=== PATIENT | female | born 1950 | race Two or more races ===

== ENCOUNTER 2016-04-09 20:39 | Emergency (ER) | payer MEDICARE ==
[~2016-04-09] VITALS: Ht 165.1 cm; Wt 69.9 kg
[2016-04-09 21:13] VITALS: BP 175/71
[2016-04-09] MEDS ORDERED: BENAZEPRIL HCL20 MG ORAL (21:15)
[2016-04-09] MEDS ORDERED: METOPROLOL SUCC25 MG ORAL (21:15)
[2016-04-09] MEDS ORDERED: ASPIR 8181 MG ORAL (21:15)
[2016-04-09] MEDS ORDERED: Ketorolac 30mg Inj IV ONE (21:45)
[2016-04-09 22:00] LABS: EOSINOPHILS % (AUTO) 1.5 % (0.0-3.0); LYMPHOCYTES % (AUTO) 21.6 % (20.0-45.0); MEAN CORPUSCULAR HEMOGLOBIN 32.7 PG (27.0-31.0); MEAN CORPUSCULAR HGB CONC 34.2 G/DL (32.0-36.0); MEAN CORPUSCULAR VOLUME 96 FL (80-99); MEAN PLATELET VOLUME 10.3 FL (6.5-10.1); MONOCYTES % (AUTO) 9.2 % (1.0-10.0); NEUTROPHILS % (AUTO) 66.7 % (45.0-75.0); PLATELET COUNT 157 K/UL (150-450); RED BLOOD COUNT 4.19 M/UL (4.20-5.40); RED CELL DISTRIBUTION WIDTH 11.5 % (11.6-14.8); WHITE BLOOD COUNT 10.6 K/UL (4.8-10.8)
--- NOTE | 2016-04-09 22:10 | Emergency Room Report ---
History of Present Illness General Chief Complaint: General Complaint Source: Patient Present Illness [facility] This is a 66-year-old female with history hypertension. She presents with chief complaint of back pain and epigastric pain. Onset few hours ago. Denies any fever or chills. Pain is now diffuse in nature achy nature. She does have a history of osteoarthritis. When she checked her blood pressure it was 180/ 90. She was concerned. Denies any chest pain. Denies any diaphoresis. Denies any shortness of breath or exertional component. No urinary complaint. Allergies: Coded Allergies: ACETAMINOPHEN (Verified Allergy, Unknown, 04/09/16) HYDROCODONE (Verified Allergy, Unknown, 04/09/16) Patient History Past Medical History: see triage record, old chart reviewed, HTN Past Surgical History: other Pertinent Family History: none Social History: Denies: smoking Now: No Immunizations: other Reviewed Nursing Documentation: PMH: Agreed, PSxH: Agreed Nursing Documentation-PMH Past Medical History: No History, Except For Hx Cardiac Problems: Yes - Stent , stenosis Hx Hypertension: Yes Review of Systems Eye: Denies: blurred vision, eye pain ENT: Denies: ear pain, nose congestion, throat swelling Respiratory: Denies: cough, shortness of breath Cardiovascular: Denies: chest pain, palpitations Gastrointestinal: Reports: abdominal pain, Denies: diarrhea, nausea, vomiting Musculoskeletal: Reports: back pain, Denies: joint pain Skin: Denies: rash Neurological: Denies: headache, numbness Endocrine: Denies: increased thirst, increased urine Hematologic/Lymphatic: Denies: easy bruising All Other Systems: negative except mentioned in HPI Physical Exam Vital Signs Date Time Temp Pulse Resp B/P Pulse Ox O2 Delivery O2 Flow Rate FiO2 04/09/16 21:09 98.2 66 16 175/71 98 Room Air vitals with hypertension Sp02 EP Interpretation: reviewed, normal General Appearance: well appearing, no apparent distress, alert Head: normocephalic, atraumatic Eyes: bilateral eye EOMI, bilateral eye PERRL ENT: hearing grossly normal, normal pharynx Neck: full range of motion, supple, no meningismus Respiratory: chest non-tender, lungs clear, normal breath sounds Cardiovascular #1: regular rate, rhythm, no murmur Gastrointestinal: normal bowel sounds, non tender, no mass, no organomegaly, no bruit, non-distended Musculoskeletal: back normal, gait/station normal, normal range of motion Neurologic: alert, oriented x3 Psychiatric: anxious Skin: warm/dry Medical Decision Making Diagnostic Impression: Primary Impression: Back pain Qualified Codes: M54.6 - Pain in thoracic spine Additional Impression: Hypertension Qualified Codes: I10 - Essential (primary) hypertension ER Course Patient presents with back pain. Most likely osteoarthritis type pain. No evidence of aortic dissection. No evidence of ACS. No evidence of PE. No infectious cause. Patient felt better now. Blood pressures improved. We'll discharge home. Lab Results Impression labs unremarkable EKG Diagnostic Results Rate: normal Rhythm: NSR ST Segments: no acute changes Rhythm Strip Diag. Results EP Interpretation: yes Rate: 60 Rhythm: NSR, no PVC's, no ectopy Last Vital Signs Date Time Temp Pulse Resp B/P Pulse Ox O2 Delivery O2 Flow Rate FiO2 04/09/16 21:09 98.2 66 16 175/71 98 Room Air Status: improved Disposition: HOME, SELF-CARE Condition: Stable Scripts Meloxicam* (MOBIC*) 7.5 Mg Tablet 7.5 MG ORAL DAILY, #30 TAB 0 Refills Prov: SOPHY PFEIFFER M.D. 04/09/16 Referrals: NON PHYSICIAN (PCP) Additional Instructions: Followup with your DrKaro in 7 days. Return if symptom worsen. SOPHY PFEIFFER M.D. Apr 09, 2016 22:10
[2016-04-09 22:16] LABS: TROPONIN I < 0.30 ng/mL (<=0.30)
[2016-04-09 22:17] LABS: ALANINE AMINOTRANSFERASE 16 U/L (3-33); ALBUMIN/GLOBULIN RATIO 1.1 (1.0-2.7); ANION GAP 17 (5-15); ASPARTATE AMINO TRANSFERASE 19 U/L (5-40); CARBON DIOXIDE 24 mEQ/L (20-30); CHLORIDE 102 mEQ/L (98-107); CREATININE 0.6 mg/dL (0.5-0.9); GLOMERULAR FILTRATION RATE > 60 mL/min (>60); HEMOLYSIS 25; POTASSIUM 4.1 mEQ/L (3.4-4.9); SODIUM 143 mEQ/L (135-145); TOTAL PROTEIN 7.4 g/dL (6.6-8.7)
[2016-04-09 22:27] LABS: CKMB 1.9 ng/mL (< 3.8)
[2016-04-09 22:39] LABS: APPEARANCE,URINE CLEAR; KETONES,URINE NEGATIVE (NEGATIVE); LEUKOCYTE ESTERASE ,URINE 1+ (NEGATIVE); NITRITE,URINE NEGATIVE (NEGATIVE); PH,URINE 5 (4.5-8.0); PROTEIN,URINE NEGATIVE (NEGATIVE); UROBILINOGEN,URINE NORMAL MG/DL (0.0-1.0)
[2016-04-09 22:48] LABS: RBC,URINE 0-2 /HPF (0 - 2); WBC,URINE 0-2 /HPF (0 - 2)
[2016-04-09 22:49] LABS: BACTERIA,URINE FEW /HPF; SQUAMOUS EPITHELIAL CELL,UR FEW /LPF (NONE/OCC)
[2016-04-09] MEDS ORDERED: MOBIC7.5 MG ORAL (22:52)
[2016-04-09 23:17] VITALS: BP 164/87
--- NOTE | 2016-04-10 10:53 | Diagnostic Imaging Report ---
Indication: Chest Pain Comparison: None A single view chest radiograph was obtained. Findings: No definite infiltrate or pulmonary vascular congestion identified. The heart is enlarged. The aorta is mildly enlarged consistent with atherosclerotic vascular disease. The bones are osteopenic. Impression: No acute disease
--- NOTE | 2016-04-12 10:07 | Cardiology Report ---
APPROVED REPORT EKG Measurement Heart [id number] Sinus bradycardia Otherwise normal ECG
== END 2016-04-09 23:17 | disposition home or self-care (01) ==
LOC: EMR 21:47
DX: M54.6 Pain in thoracic spine (principal); I10 Essential (primary) hypertension; Z95.5 Presence of coronary angioplasty implant and graft; Z88.6 Allergy status to analgesic agent
CPT/HCPCS: 36415; 71010; 80053; 81003; 82550; 82553; 83880; 84484; 85025; 93005; 96374; 99284; J1885

== ENCOUNTER 2017-06-21 12:09 | Emergency (ER) | payer MEDICARE, MEDICAID ==
[~2017-06-21] VITALS: Ht 165.1 cm; Wt 68.0 kg
[~2017-06-21 12:09] MED LIST: ASPIR 8181 MG ORAL; BENAZEPRIL HCL20 MG ORAL; METOPROLOL SUCC25 MG ORAL; MOBIC7.5 MG ORAL
[2017-06-21] MEDS ORDERED: AMLODIPINE BESY10 MG ORAL (12:19)
[2017-06-21] MEDS ORDERED: CARVEDILOL12.5 MG ORAL (12:19)
[2017-06-21] MEDS ORDERED: BRILINTA90 MG PO (12:19)
[2017-06-21 12:43] VITALS: BP 146/54
[2017-06-21 12:52] LABS: EOSINOPHILS % (AUTO) 1.4 % (0.0-3.0); HEMATOCRIT 40.6 % (37.0-47.0); MEAN CORPUSCULAR VOLUME 95 FL (80-99); MONOCYTES % (AUTO) 8.2 % (1.0-10.0); NEUTROPHILS % (AUTO) 62.4 % (45.0-75.0); PLATELET COUNT 168 K/UL (150-450); RED BLOOD COUNT 4.27 M/UL (4.20-5.40); RED CELL DISTRIBUTION WIDTH 11.7 % (11.6-14.8); WHITE BLOOD COUNT 6.7 K/UL (4.8-10.8)
--- NOTE | 2017-06-21 12:55 | Emergency Room Report ---
History of Present Illness General Chief Complaint: Hypertension Source: Patient Present Illness HPI 67-year-old female, history of hypertension and arthritis, presenting with high blood pressure. Patient states that she is on carvedilol, benazepril, amlodipine, and she has been compliant with her medications. States that since February she has been struggling with high blood pressure. Also states that she may be stressed out. States that she has seen her doctor multiple times, however the last time she went to the clinic an [employer] told her to come to the emergency room due to her high blood pressure She states intermittent blurry vision and generalized weakness for the last 5 months. Currently denying any chest pain shortness of breath dizziness nausea or vomiting Allergies: Coded Allergies: ACETAMINOPHEN (Verified Allergy, Unknown, 04/09/16) HYDROCODONE (Verified Allergy, Unknown, 04/09/16) Patient History Past Medical History: see triage record Past Surgical History: none Pertinent Family History: none Last Menstrual Period: Post Reviewed Nursing Documentation: PMH: Agreed; PSxH: Agreed Nursing Documentation-PMH Hx Cardiac Problems: Yes - Stent , stenosis Hx Hypertension: Yes Hx Diabetes: Yes Review of Systems All Other Systems: negative except mentioned in HPI Physical Exam Vital Signs Date Time Temp Pulse Resp B/P (MAP) Pulse Ox O2 Delivery O2 Flow Rate FiO2 06/21/17 12:13 98.2 69 15 142/66 96 Room Air 98.2 Sp02 EP Interpretation: reviewed, normal General Appearance: alert, GCS 15, non-toxic, mild distress Head: normocephalic, atraumatic Eyes: bilateral eye normal inspection, bilateral eye PERRL, bilateral eye EOMI ENT: normal ENT inspection, normal pharynx, normal voice, moist mucus membranes Neck: normal inspection, full range of motion, supple Respiratory: normal inspection, lungs clear, normal breath sounds, no respiratory distress, no retraction, no wheezing, speaking full sentences, chest symmetrical Cardiovascular #1: normal inspection, regular rate, rhythm, no edema, normal capillary refill Cardiovascular #2: 2+ radial (R), 2+ radial (L) Gastrointestinal: normal inspection, non tender, soft, non-distended, no guarding Musculoskeletal: normal inspection, back normal, normal range of motion, non- tender Neurologic: normal inspection, alert, oriented x3, responsive, motor strength/ tone normal, sensory intact, normal gait, speech normal Psychiatric: normal inspection, judgement/insight normal, memory normal Skin: normal inspection, normal color, no rash, warm/dry, well hydrated, normal turgor Medical Decision Making Diagnostic Impression: Primary Impression: Hypertension ER Course 67-year-old female presenting with hypertension, intermittent dizziness and weakness since February for the last 5 months DDX: Hypertension rule out any end organ damage Plan: Obtain labs, ua, EKG, CXR ER course: Patient has been monitored during ED stay, HD stable BP has remained stable, systolic 140s, she is not in acute distress Disposition: Patient is to be DC to home with PCP follow-up Please note that this Emergency Department Report was dictated using [employer] setter technology software, occasionally this can lead to erroneous entry secondary to interpretation by the dictation equipment. EKG Diagnostic Results EP Interpretation: Yes Rate: normal Rhythm: NSR ST Segments: No acute changes ASA given to patient: No Rhythm Strip EP Interpretation: Yes Rate: 60 Rhythm: NSR, no PVCs, no ectopy Chest X-ray CXR: Ordered: Yes 1 view Indication: Pain EP interpretation: Yes Interpretation: No consolidation, no effusion, no PTX, no acute cardiopulmonary disease Impression: No acute disease Electronically signed by Joshua Manzanares MD Laboratory Tests Test 06/21/17 12:25 06/21/17 12:40 Urine Color Yellow Urine Appearance Clear Urine pH 5 (4.5-8.0) Urine Specific [place] 1.020 (1.005-1.035) Urine Protein 1+ (NEGATIVE) H Urine Glucose (UA) Negative (NEGATIVE) Urine Ketones Negative (NEGATIVE) Urine Occult Blood 3+ (NEGATIVE) H Urine Nitrite Negative (NEGATIVE) Urine Bilirubin Negative (NEGATIVE) Urine Urobilinogen Normal MG/DL (0.0-1.0) Urine Leukocyte Esterase 1+ (NEGATIVE) H Urine RBC 2-4 /HPF (0 - 2) H Urine WBC 0-2 /HPF (0 - 2) Urine Squamous Epithelial Cells Few /LPF (NONE/OCC) Urine Bacteria Occasional /HPF (NONE) White Blood Count 6.7 K/UL (4.8-10.8) Red Blood Count 4.27 M/UL (4.20-5.40) Hemoglobin 14.0 G/DL (12.0-16.0) Hematocrit 40.6 % (37.0-47.0) Mean Corpuscular Volume 95 FL (80-99) Mean Corpuscular Hemoglobin 32.8 PG (27.0-31.0) H Mean Corpuscular Hemoglobin Concent 34.5 G/DL (32.0-36.0) Red Cell Distribution Width 11.7 % (11.6-14.8) Platelet Count 168 K/UL (150-450) Mean Platelet Volume 9.8 FL (6.5-10.1) Neutrophils (%) (Auto) 62.4 % (45.0-75.0) Lymphocytes (%) (Auto) 27.0 % (20.0-45.0) Monocytes (%) (Auto) 8.2 % (1.0-10.0) Eosinophils (%) (Auto) 1.4 % (0.0-3.0) Basophils (%) (Auto) 1.0 % (0.0-2.0) Sodium Level 142 MMOL/L (136-145) Potassium Level 4.1 MMOL/L (3.5-5.1) Chloride Level 109 MMOL/L (98-107) H Carbon Dioxide Level 24 MMOL/L (21-32) Anion Gap 9 mmol/L (5-15) Blood Urea Nitrogen 18 mg/dL (7-18) Creatinine 0.6 MG/DL (0.55-1.30) Estimate Glomerular Filtration Rate > 60 mL/min (>60) Glucose Level 164 MG/DL (74-106) H Calcium Level 8.9 MG/DL (8.5-10.1) Total Bilirubin 0.9 MG/DL (0.2-1.0) Aspartate Amino Transferase (AST) 19 U/L (15-37) Alanine Aminotransferase (ALT) 28 U/L (12-78) Alkaline Phosphatase 79 U/L (46-116) Troponin I 0.000 ng/mL (0.000-0.056) Total Protein 8.1 G/DL (6.4-8.2) Albumin 3.6 G/DL (3.4-5.0) Globulin 4.5 g/dL Albumin/Globulin Ratio 0.8 (1.0-2.7) L Last Vital Signs Date Time Temp Pulse Resp B/P (MAP) Pulse Ox O2 Delivery O2 Flow Rate FiO2 06/21/17 12:43 58 14 146/54 100 Room Air 06/21/17 12:13 98.2 98.2 Disposition: HOME, SELF-CARE Condition: Improved Joshua Manzanares M.D. June 21, 2017 12:55
[2017-06-21 12:59] LABS: APPEARANCE,URINE CLEAR; BILIRUBIN, URINE NEGATIVE (NEGATIVE); GLUCOSE, URINE (UA) NEGATIVE (NEGATIVE); KETONES,URINE NEGATIVE (NEGATIVE); LEUKOCYTE ESTERASE ,URINE 1+ (NEGATIVE); NITRITE,URINE NEGATIVE (NEGATIVE); PH,URINE 5 (4.5-8.0); PROTEIN,URINE 1+ (NEGATIVE); UROBILINOGEN,URINE NORMAL MG/DL (0.0-1.0)
[2017-06-21 13:06] LABS: ANION GAP 9 mmol/L (5-15); BLOOD UREA NITROGEN 18 mg/dL (7-18); CALCIUM 8.9 MG/DL (8.5-10.1); CARBON DIOXIDE 24 MMOL/L (21-32); CHLORIDE 109 MMOL/L (98-107); CREATININE 0.6 MG/DL (0.55-1.30); POTASSIUM 4.1 MMOL/L (3.5-5.1); SODIUM 142 MMOL/L (136-145)
[2017-06-21 13:11] LABS: ALANINE AMINOTRANSFERASE 28 U/L (12-78); ALBUMIN 3.6 G/DL (3.4-5.0); ALBUMIN/GLOBULIN RATIO 0.8 (1.0-2.7); ALKALINE PHOSPHATASE 79 U/L (46-116); ASPARTATE AMINO TRANSFERASE 19 U/L (15-37); BILIRUBIN,TOTAL 0.9 MG/DL (0.2-1.0)
[2017-06-21 13:15] LABS: COLOR,URINE YELLOW
--- NOTE | 2017-06-21 13:34 | Diagnostic Imaging Report ---
Indication: Dyspnea Comparison: 04/09/2016 A single view chest radiograph was obtained. Findings: Cardiomediastinal appearance is within normal limits for age. Aorta is calcified. Pulmonary vascularity is appropriate. The diaphragmatic contour is smooth and costophrenic angles are sharp. No pleural effusions are identified. The bones are osteopenic. Impression: No acute findings
[2017-06-21 13:46] VITALS: BP 138/41
--- NOTE | 2017-06-22 15:50 | Cardiology Report ---
APPROVED REPORT EKG Measurement Heart [id number] Sinus bradycardia Otherwise normal ECG
== END 2017-06-21 13:54 | disposition home or self-care (01) ==
LOC: EMR 12:50
DX: I10 Essential (primary) hypertension (principal); E11.9 Type 2 diabetes mellitus without complications; Z88.6 Allergy status to analgesic agent
CPT/HCPCS: 36415; 71045; 80053; 81003; 84484; 85025; 93005; 99283

== ENCOUNTER 2018-01-10 18:13 | Inpatient (IN) | payer MEDICARE, MEDICAID ==
[~2018-01-10] VITALS: Ht 165.1 cm; Wt 67.8 kg
[~2018-01-10 18:13] MED LIST changes: +AMLODIPINE BESY10 MG ORAL; +BRILINTA90 MG PO; +CARVEDILOL12.5 MG ORAL
[2018-01-10 18:38] VITALS: BP 161/81
[2018-01-10] MEDS ORDERED: Lidocaine 2% Visc 15ml soln ORAL ONE (18:45)
[2018-01-10] MEDS ORDERED: Dicyclomine HCl 10mg/5ml oral soln ORAL ONE (18:45)
[2018-01-10] MEDS ORDERED: Mylanta II UD 30ml ORAL ONE (18:45)
[2018-01-10 18:58] LABS: APPEARANCE,URINE CLEAR; BILIRUBIN, URINE NEGATIVE (NEGATIVE); COLOR,URINE PALE YELLOW; GLUCOSE, URINE (UA) NEGATIVE (NEGATIVE); KETONES,URINE NEGATIVE (NEGATIVE); LEUKOCYTE ESTERASE ,URINE NEGATIVE (NEGATIVE); NITRITE,URINE NEGATIVE (NEGATIVE); PH,URINE 5 (4.5-8.0); PROTEIN,URINE 2+ (NEGATIVE); UROBILINOGEN,URINE NORMAL MG/DL (0.0-1.0)
[2018-01-10 19:02] LABS: EOSINOPHILS % (AUTO) 0.9 % (0.0-3.0); HEMOGLOBIN 13.7 G/DL (12.0-16.0); LYMPHOCYTES % (AUTO) 7.1 % (20.0-45.0); MEAN CORPUSCULAR VOLUME 94 FL (80-99); MONOCYTES % (AUTO) 4.5 % (1.0-10.0); NEUTROPHILS % (AUTO) 86.5 % (45.0-75.0); PLATELET COUNT 185 K/UL (150-450); RED BLOOD COUNT 4.16 M/UL (4.20-5.40); WHITE BLOOD COUNT 12.3 K/UL (4.8-10.8)
[2018-01-10 19:09] LABS: ANION GAP 10 mmol/L (5-15); BLOOD UREA NITROGEN 25 mg/dL (7-18); CARBON DIOXIDE 23 MMOL/L (21-32); CHLORIDE 107 MMOL/L (98-107); CREATININE 0.6 MG/DL (0.55-1.30); POTASSIUM 4.4 MMOL/L (3.5-5.1); SODIUM 140 MMOL/L (136-145)
[2018-01-10 19:13] LABS: ALANINE AMINOTRANSFERASE 20 U/L (12-78); ALBUMIN 3.6 G/DL (3.4-5.0); ALBUMIN/GLOBULIN RATIO 0.7 (1.0-2.7); ALKALINE PHOSPHATASE 81 U/L (46-116); ASPARTATE AMINO TRANSFERASE 19 U/L (15-37); BILIRUBIN,TOTAL 0.6 MG/DL (0.2-1.0)
[2018-01-10] MEDS ORDERED: Isovue-300 100ml vial INJ PRN (19:45)
[2018-01-10 21:00] VITALS: BP 148/79
[2018-01-10 21:30] VITALS: BP 146/65
[2018-01-10] MEDS ORDERED: Milk of Magnesia 30ml Ud ORAL PRN (22:30)
[2018-01-10] MEDS ORDERED: traMADol 50mg tab ORAL PRN (22:45)
--- NOTE | 2018-01-10 23:38 | Emergency Room Report ---
History of Present Illness General Chief Complaint: Abdominal Pain Source: Patient, Medical Record Present Illness HPI 67-year-old female presents ED for evaluation. Patient complaining of abdominal pain with vomiting and diarrhea 1 day. Pain is cramping, 6 out of 10 , nonradiating. Notes multiple episodes of vomiting and diarrhea. Denies fevers or chills. Denies sick contacts or recent travel. Denies recent antibiotic use. No other aggravating relieving factors. Denies any other associated symptoms Allergies: Coded Allergies: ACETAMINOPHEN (Verified Allergy, Unknown, 01/10/18) HYDROCODONE (Verified Allergy, Unknown, 01/10/18) Patient History Past Medical History: DM, HTN, CAD Past Surgical History: none Pertinent Family History: none Social History: Denies: smoking, alcohol use, drug use Now: No Immunizations: UTD Reviewed Nursing Documentation: PMH: Agreed; PSxH: Agreed Nursing Documentation-PMH Past Medical History: No History, Except For Hx Cardiac Problems: Yes - Stent, stenosis Hx Hypertension: Yes Hx Diabetes: Yes Hx Cancer: No Hx Gastrointestinal Problems: No Hx Neurological Problems: No Review of Systems All Other Systems: negative except mentioned in HPI Physical Exam Vital Signs Date Time Temp Pulse Resp B/P (MAP) Pulse Ox O2 Delivery O2 Flow Rate FiO2 01/10/18 18:21 97.9 69 16 150/60 97 Room Air 01/10/18 18:38 98 Sp02 EP Interpretation: reviewed, normal General Appearance: no apparent distress, alert, GCS 15, non-toxic Head: normocephalic, atraumatic Eyes: bilateral eye normal inspection, bilateral eye PERRL ENT: hearing grossly normal, normal pharynx, no angioedema, normal voice Neck: full range of motion, supple/symm/no masses Respiratory: chest non-tender, lungs clear, normal breath sounds, speaking full sentences Cardiovascular #1: regular rate, rhythm, no edema Cardiovascular #2: 2+ carotid (R), 2+ carotid (L), 2+ radial (R), 2+ radial (L) , 2+ dorsalis pedis (R), 2+ dorsalis pedis (L) Gastrointestinal: normal bowel sounds, soft, non-distended, no guarding, no rebound, tenderness Rectal: deferred Genitourinary: normal inspection, no CVA tenderness Musculoskeletal: back normal, gait/station normal, normal range of motion, non- tender Neurologic: alert, oriented x3, responsive, motor strength/tone normal, sensory intact, speech normal Psychiatric: judgement/insight normal, memory normal, mood/affect normal, no suicidal/homicidal ideation Reflexes: 3+ bicep (R), 3+ bicep (L), 3+ tricep (R), 3+ tricep (L), 3+ knee (R) , 3+ knee (L) Skin: normal color, no rash, warm/dry, well hydrated Lymphatic: no adenopathy Medical Decision Making Diagnostic Impression: Primary Impression: Gastroenteritis Additional Impression: Intractable abdominal pain ER Course Hospital Course 67-year-old M presents to ED with abdominal pain, vomiting, diarrhea Differential diagnosis includes-appendicitis, cholecystitis, small bowel obstruction, gastritis, Clinical course Patient placed on stretcher. After initial history and physical I ordered labs , IV fluids, pain medications and CT scan Labs - no leukocytosis, electrolytes ok, LFTs normal, UA unremarkable CT scan shows no acute pathology She continues to have pain and vomiting. We will admit for IV hydration and pain control She will be admitted to Dr. Duenas I feel this is a highly complex case requiring extensive working including EKG/ Rhythm strip, Xray/CT/US, Blood/urine lab work, repeat exams while in ED, and administration of strong opiates/narcotics for pain control, admission to hospital or close patient follow up. Diagnosis - intractable abdominal pain, gastroenteritis admitted to floor in serious condition Labs Test 01/10/18 18:30 01/10/18 18:45 Urine Color Pale yellow Urine Appearance Clear Urine pH 5 (4.5-8.0) Urine Specific [place] 1.015 (1.005-1.035) Urine Protein 2+ (NEGATIVE) Urine Glucose (UA) Negative (NEGATIVE) Urine Ketones Negative (NEGATIVE) Urine Blood 2+ (NEGATIVE) Urine Nitrite Negative (NEGATIVE) Urine Bilirubin Negative (NEGATIVE) Urine Urobilinogen Normal MG/DL (0.0-1.0) Urine Leukocyte Esterase Negative (NEGATIVE) Urine RBC 0-2 /HPF (0 - 2) Urine WBC 0 /HPF (0 - 2) Urine Squamous Epithelial Cells Occasional /LPF Urine Bacteria None /HPF (NONE) Urine Mucus Occasional /LPF Sodium Level 140 MMOL/L (136-145) Potassium Level 4.4 MMOL/L (3.5-5.1) Chloride Level 107 MMOL/L (98-107) Carbon Dioxide Level 23 MMOL/L (21-32) Anion Gap 10 mmol/L (5-15) Blood Urea Nitrogen 25 mg/dL (7-18) Creatinine 0.6 MG/DL (0.55-1.30) Estimat Glomerular Filtration Rate > 60 mL/min (>60) Glucose Level 134 MG/DL (74-106) Calcium Level 9.0 MG/DL (8.5-10.1) Total Bilirubin 0.6 MG/DL (0.2-1.0) Aspartate Amino Transf (AST/SGOT) 19 U/L (15-37) Alanine Aminotransferase (ALT/SGPT) 20 U/L (12-78) Alkaline Phosphatase 81 U/L (46-116) Troponin I 0.000 ng/mL (0.000-0.056) Total Protein 8.5 G/DL (6.4-8.2) Albumin 3.6 G/DL (3.4-5.0) Globulin 4.9 g/dL Albumin/Globulin Ratio 0.7 (1.0-2.7) Lipase 155 U/L (73-393) White Blood Count 12.3 K/UL (4.8-10.8) Red Blood Count 4.16 M/UL (4.20-5.40) Hemoglobin 13.7 G/DL (12.0-16.0) Hematocrit 39.0 % (37.0-47.0) Mean Corpuscular Volume 94 FL (80-99) Mean Corpuscular Hemoglobin 32.9 PG (27.0-31.0) Mean Corpuscular Hemoglobin Concent 35.1 G/DL (32.0-36.0) Red Cell Distribution Width 11.0 % (11.6-14.8) Platelet Count 185 K/UL (150-450) Mean Platelet Volume 9.0 FL (6.5-10.1) Neutrophils (%) (Auto) 86.5 % (45.0-75.0) Lymphocytes (%) (Auto) 7.1 % (20.0-45.0) Monocytes (%) (Auto) 4.5 % (1.0-10.0) Eosinophils (%) (Auto) 0.9 % (0.0-3.0) Basophils (%) (Auto) 1.0 % (0.0-2.0) EKG Diagnostic Results Rate: normal Rhythm: NSR ST Segments: no acute changes ASA given to the pt in ED: No Rhythm Strip Diag. Results EP Interpretation: yes Rhythm: NSR, no PVC's, no ectopy CT/MRI/US Diagnostic Results CT/MRI/US Diagnostic Results : Imaging Test Ordered: CT A/P Impression no acute process Last Vital Signs Date Time Temp Pulse Resp B/P (MAP) Pulse Ox O2 Delivery O2 Flow Rate FiO2 01/10/18 21:38 Room Air 01/10/18 21:30 97.7 59 19 146/65 (92) 97 01/10/18 18:38 98 Status: improved Disposition: ADMITTED INPATIENT Condition: Serious Referrals: NON PHYSICIAN (PCP) Ramone Ferro MD Jan 10, 2018 23:38
[2018-01-11] VITALS: BP 115/61
[2018-01-11 04:00] VITALS: BP 144/57
[2018-01-11] MEDS: metroNIDAZOLE 500mg tab ORAL SCH ×2 (05:40→14:20)
[2018-01-11 08:00] VITALS: BP 151/86
[2018-01-11] MEDS ORDERED: Carvedilol 12.5mg tab ORAL SCH (09:00)
[2018-01-11] MEDS ORDERED: Metoprolol Succinate XL 25mg tab ORAL SCH (09:00)
[2018-01-11] MEDS ORDERED: Aspirin EC 81mg tab ORAL SCH (09:00)
[2018-01-11] MEDS ORDERED: Heparin 5000 units/ml inj SUBQ SCH (09:00)
[2018-01-11] MEDS ORDERED: Ciprofloxacin 500mg tab ORAL SCH (09:00)
--- NOTE | 2018-01-11 09:17 | Diagnostic Imaging Report ---
Clinical Indication: Abdominal pain, nausea, vomiting, diarrhea since this morning Technique: No oral contrast utilized, per emergency room physician request IV administration nonionic contrast. Venous phase spiral acquisition obtained through the abdomen and pelvis. Multiplanar reconstructions were generated. Total dose length product 746.85 mGycm. CTDIvol(s) 15.47 mGy. Dose reduction achieved using automated exposure control Comparison: none Findings: There is colonic diverticulosis. No evidence of diverticulitis. The appendix is normal. Small bowel loops are diffusely prominent in caliber, fluid-filled, but not frankly distended. The colon is fluid-filled. No definite wall thickening. There is a small fat-containing right inguinal hernia. Surgical clips are seen in both groins. The distal esophagus, stomach, duodenum are unremarkable. No free or loculated peritoneal gas or fluid is evident. The liver demonstrates a subcentimeter low-attenuation lesion in segment 5 which is too small to characterize. The gallbladder demonstrates equivocal mild wall thickening, and slight pericholecystic edema, probably an artifact of under distention. The pancreas and spleen are unremarkable. The kidneys demonstrate subcentimeter low-attenuation lesions bilaterally which are too small to characterize. Calcifications in the right renal sinus are more likely arterial or calyceal. There is mild fullness of the bilateral renal collecting systems without evidence of ureteral obstruction. The bladder is unremarkable. No pelvic mass or adenopathy. No retroperitoneal or mesenteric mass or adenopathy. The bones demonstrate mild degenerative spondylosis changes. The included lung bases demonstrate minimal posterior dependent atelectatic changes. Impression: Colonic diverticulosis. No evidence of diverticulitis. Prominent fluid-filled small bowel loops. Fluid-filled colon. Likely related to stated clinical history of diarrhea, could indicate enteritis changes Subcentimeter low-attenuation right lobe liver lesion, most likely benign simple cysts or bile hamartoma. Subcentimeter bilateral renal lesions, too small to characterize, most likely likely benign simple cortical cysts. No further follow-up necessary Equivocal mild bladder wall thickening, probably an artifact of under distention Degenerative spondylosis, evidence of prior bilateral inguinal region surgery, fat-containing right inguinal hernia, and minimal dependent pulmonary atelectasis incidentally noted This agrees with the preliminary interpretation provided overnight by [employer] teleradiology service, with minor variation. The CT scanner at [facility] is accredited by the [employer] and the scans are performed using protocols designed to limit radiation exposure to as low as reasonably achievable to attain images of sufficient resolution adequate for diagnostic evaluation.
[2018-01-11] MEDS ORDERED: traMADol 50mg tab ORAL PRN (09:31)
--- NOTE | 2018-01-11 11:15 | History and Physical Report ---
DATE OF ADMISSION: 01/10/2018 HISTORY OF PRESENT ILLNESS: The patient is a pleasant 67-year-old female. She has a history of hypertension, diabetes, ischemic cardiomyopathy, status post stent placement. She presented with one day of intractable nausea, vomiting, and diarrhea. According to the patient, she was well until the day of admission when she had multiple episodes of nausea, vomiting, and diarrhea. She states she has had no ill contacts or recent travel. The night before she ate a normal dinner. She denies any blood in her stool. No fevers or chills. Because of persistent nausea, vomiting, and diarrhea, she presented to the emergency room. On evaluation there, she was slightly hypertensive. Laboratory tests showed a white count of 12,000. UA was clear. LFTs were unremarkable. She had a CT scan that was unremarkable. In light of her persistent nausea and vomiting and because of continued dehydration, she is now admitted for further inpatient evaluation and care. PAST MEDICAL HISTORY: As above. PAST SURGICAL HISTORY: Include stent placement. CURRENT MEDICATIONS: Reconciled and reviewed. ALLERGIES: Include ACETAMINOPHEN and HYDROCODONE. FAMILY HISTORY: Noncontributory. SOCIAL HISTORY: Negative for tobacco, ethanol, or drugs. REVIEW OF SYSTEMS: GENERAL: No fevers or chills. HEENT: No headaches or visual changes. CARDIOPULMONARY: No chest pain or shortness of breath. GASTROINTESTINAL: Positive nausea, vomiting, and diarrhea. GENITOURINARY: No urgency or frequency. MUSCULOSKELETAL: No joint pain or swelling. NEUROLOGIC: No evidence of seizures. PHYSICAL EXAMINATION: VITAL SIGNS: Temperature 99.2 degrees, pulse 66, respirations 19, and blood pressure 144/57. GENERAL: The patient is well developed, no apparent distress. HEART: Regular rate and rhythm. LUNGS: Clear. ABDOMEN: Soft, nontender, and nondistended. Normoactive bowel sounds. EXTREMITIES: No clubbing, cyanosis, or edema. LABORATORY DATA: Sodium was 140, potassium 4.4, BUN 25, and creatinine 0.6. White count 12 and hemoglobin 13. Troponin was negative. Lipase was normal. Urine was clear. ASSESSMENT: 1. This is a pleasant female with complaints of intractable nausea, vomiting, and diarrhea secondary to gastroenteritis. 2. Gastroenteritis, improving. 3. Dehydration. 4. Diabetes. 5. Hypertension. 6. History of ischemic cardiomyopathy. PLAN: IV fluids. Pain medications as needed. Antiemetics. The patient tolerates food. She can go home later today and follow up with her PMD. Colton Duenas M.D. DR: REBEKAH JOB#: [id number] CC:
[2018-01-11 11:26] VITALS: BP 150/71
[2018-01-11 12:00] VITALS: BP 131/54
[2018-01-11 15:40] VITALS: BP 130/59
[2018-01-11] MEDS ORDERED: 1/2 NS 1000ml IV ONE ×2 (18:20)
[2018-01-11] MEDS ORDERED: D5 1/2NS 1000ml IV ONE (18:20)
--- NOTE | 2018-01-12 06:40 | Discharge Summary ---
Discharge Summary Discharge Summary _ DATE OF ADMISSION: 01/10/2018 DATE OF DISCHARGE: 01/11/2018 BRIEF HOSPITAL COURSE: Patient is a pleasant 67-year-old female. Patient has a history of hypertension , diabetes, ischemic cardiomyopathy, status post stent placement. She presented with 1 day of intractable nausea, vomiting and diarrhea. According to the patient, she was well until the day of admission when she had multiple episodes of nausea, vomiting and diarrhea. She denied any ill contacts or recent travel. The night before she ate a normal dinner. She denied any blood in the stools. No fever or chills. On evaluation at ED, blood work did not show any leukocytoses, hemoglobin and hematocrit were stable. Lipase were normal. LFTs normal. Troponin negative. Electrolytes were stable. Urinalysis unremarkable. CT of the abdomen and pelvis was unremarkable. Due to persistent nausea and vomiting and because of dehydration, she was admitted for further inpatient evaluation and care. She was given IV hydration. She was resumed home meds. She was placed on supportive care. Symptoms resolved and she was tolerating diet. She was eventually discharged home. FINAL DIAGNOSES: Intractable nausea, vomiting and diarrhea secondary to gastroenteritis Gastroenteritis Dehydration Diabetes Hypertension History of ischemic cardiomyopathy DISPOSITION: Patient was discharged home. DISCHARGE MEDICATIONS: Refer to Discharge Medication List. DISCHARGE INSTRUCTIONS: Follow up with PCP in a week. I have been assigned to dictate discharge summary on this account, and I was not involved in the patient's management. Almaz Hyatt NP Jan 12, 2018 06:40
== END 2018-01-11 18:21 | disposition home or self-care (01) | DRG 392 ==
LOC: EMR 18:46 → 4E 19:55 → EDBEDREQ 20:17
DX: K52.9 Noninfective gastroenteritis and colitis, unspecified (principal); E86.0 Dehydration; E11.9 Type 2 diabetes mellitus without complications; I10 Essential (primary) hypertension; I25.5 Ischemic cardiomyopathy; I25.10 Atherosclerotic heart disease of native coronary artery without angina pectoris; Z95.5 Presence of coronary angioplasty implant and graft; Z88.6 Allergy status to analgesic agent
CPT/HCPCS: 36415; 74177; 80053; 81003; 83690; 84484; 85025; 93005; 96361; 96374; 96375; 99285; J2405

== ENCOUNTER 2018-05-20 20:28 | Emergency (ER) | payer MEDICARE, MEDICAID ==
[~2018-05-20] VITALS: Ht 165.1 cm; Wt 68.0 kg
[2018-05-20] MEDS ORDERED: ATIVAN0.5 MG ORAL (20:38)
[2018-05-20] MEDS ORDERED: BENAZEPRIL HCL40 MG ORAL (20:39)
--- NOTE | 2018-05-20 20:51 | NUR ---
ED Nurse Note: Patient walked in, presents with history of uncontrolled hypertension as high at 20 systolic despite medications for control.
[2018-05-20 20:52] VITALS: BP 173/78
--- NOTE | 2018-05-20 21:23 | Diagnostic Imaging Report ---
EXAM: XR Chest, 1 View CLINICAL HISTORY: CP TECHNIQUE: Frontal view of the chest. COMPARISON: No relevant prior studies available. FINDINGS: Lungs: No consolidation. Pleural space: Unremarkable. No pneumothorax. Heart: cardiomegaly. Mediastinum: Unremarkable. Bones/joints: No acute fracture. IMPRESSION: No acute cardiopulmonary disease.
--- NOTE | 2018-05-20 21:30 | NUR ---
ED Nurse Note: Patient attempting to relax, able to ambulate and void at this time. no s/s of acute distress, systolic blood pressure still elevated
[2018-05-20 21:53] LABS: APPEARANCE,URINE CLEAR; BILIRUBIN, URINE NEGATIVE (NEGATIVE); COLOR,URINE PALE YELLOW; GLUCOSE, URINE (UA) NEGATIVE (NEGATIVE); KETONES,URINE NEGATIVE (NEGATIVE); LEUKOCYTE ESTERASE ,URINE NEGATIVE (NEGATIVE); NITRITE,URINE NEGATIVE (NEGATIVE); PH,URINE 5 (4.5-8.0); PROTEIN,URINE NEGATIVE (NEGATIVE); UROBILINOGEN,URINE NORMAL MG/DL (0.0-1.0)
[2018-05-20 21:53] LABS: BASOPHILS % (AUTO) 1.7 % (0.0-2.0); EOSINOPHILS % (AUTO) 2.2 % (0.0-3.0); HEMATOCRIT 33.3 % (37.0-47.0); HEMOGLOBIN 11.7 G/DL (12.0-16.0); LYMPHOCYTES % (AUTO) 26.6 % (20.0-45.0); MEAN CORPUSCULAR VOLUME 94 FL (80-99); MONOCYTES % (AUTO) 10.5 % (1.0-10.0); NEUTROPHILS % (AUTO) 58.9 % (45.0-75.0); PLATELET COUNT 135 K/UL (150-450); RED BLOOD COUNT 3.54 M/UL (4.20-5.40); RED CELL DISTRIBUTION WIDTH 11.4 % (11.6-14.8); WHITE BLOOD COUNT 6.7 K/UL (4.8-10.8)
[2018-05-20 22:08] VITALS: BP 188/45
--- NOTE | 2018-05-20 22:08 | NUR ---
ED Nurse Note: Patient laying in bed, attempting to relax.
[2018-05-20 22:15] LABS: ANION GAP 12 mmol/L (5-15); BLOOD UREA NITROGEN 21 mg/dL (7-18); CARBON DIOXIDE 22 MMOL/L (21-32); CHLORIDE 108 MMOL/L (98-107); CREATININE 0.6 MG/DL (0.55-1.30); POTASSIUM 4.2 MMOL/L (3.5-5.1); SODIUM 142 MMOL/L (136-145)
[2018-05-20 22:26] LABS: ALANINE AMINOTRANSFERASE 19 U/L (12-78); ALBUMIN 3.3 G/DL (3.4-5.0); ALBUMIN/GLOBULIN RATIO 0.9 (1.0-2.7); ALKALINE PHOSPHATASE 77 U/L (46-116); ASPARTATE AMINO TRANSFERASE 15 U/L (15-37); BILIRUBIN,TOTAL 0.4 MG/DL (0.2-1.0); CREATINE KINASE 83 U/L (26-308)
--- NOTE | 2018-05-20 22:52 | NUR ---
ED Nurse Note: ERMD at bedside discussing blood pressure control and medications with patient. Patient is A&Ox4, no s/s of acute distress, systolic BP still elevated.
--- NOTE | 2018-05-20 23:01 | Emergency Room Report ---
History of Present Illness General Chief Complaint: Hypertension Source: Patient Present Illness HPI Patient with BP med adjustment 2-3 days ago. Today checked BP = 214/116. Feels pressure in her neck. Took metoprolol this AM. Took extra benazapril Bruising with aspirin. Still takes occasionally. Allergies: Coded Allergies: ACETAMINOPHEN (Verified Allergy, Unknown, 01/10/18) HYDROCODONE (Verified Allergy, Unknown, 01/10/18) Patient History Past Medical History: see triage record Past Surgical History: PTCA Social History: Denies: smoking, alcohol use, drug use Social History Narrative lives by self. Born in [place] Reviewed Nursing Documentation: PMH: Agreed; PSxH: Agreed Nursing Documentation-PMH Past Medical History: No History, Except For Hx Cardiac Problems: Yes - Stent, stenosis Hx Hypertension: Yes Hx Diabetes: Yes Hx Cancer: No Hx Gastrointestinal Problems: No Hx Neurological Problems: No Review of Systems All Other Systems: negative except mentioned in HPI Physical Exam Vital Signs Date Time Temp Pulse Resp B/P (MAP) Pulse Ox O2 Delivery O2 Flow Rate FiO2 05/20/18 20:31 98.4 66 24 173/78 95 Sp02 EP Interpretation: reviewed, normal General Appearance: well appearing, no apparent distress, GCS 15 Head: normocephalic Eyes: bilateral eye normal inspection ENT: moist mucus membranes Neck: supple Respiratory: lungs clear, normal breath sounds Cardiovascular #1: regular rate, rhythm Cardiovascular #2: 2+ radial (R) Gastrointestinal: normal inspection, normal bowel sounds, non tender, no mass, non-distended Musculoskeletal: back normal, gait/station normal, normal range of motion Neurologic: alert, oriented x3 Skin: normal inspection, warm/dry Medical Decision Making Diagnostic Impression: Primary Impression: Hypertension Qualified Codes: I10 - Essential (primary) hypertension Additional Impression: Anxiety ER Course Patient with uncontrolled BP and pressure in neck. EKG without injury. CXR normal. Labs unremarkable. BP better with observation. Still with hypertension (and taking extra meds during the day). Clonidine given. Laboratory Tests Test 05/20/18 21:17 05/20/18 21:37 White Blood Count 6.7 K/UL (4.8-10.8) Red Blood Count 3.54 M/UL (4.20-5.40) L Hemoglobin 11.7 G/DL (12.0-16.0) L Hematocrit 33.3 % (37.0-47.0) L Mean Corpuscular Volume 94 FL (80-99) Mean Corpuscular Hemoglobin 33.0 PG (27.0-31.0) H Mean Corpuscular Hemoglobin Concent 35.1 G/DL (32.0-36.0) Red Cell Distribution Width 11.4 % (11.6-14.8) L Platelet Count 135 K/UL (150-450) L Mean Platelet Volume 8.9 FL (6.5-10.1) Neutrophils (%) (Auto) 58.9 % (45.0-75.0) Lymphocytes (%) (Auto) 26.6 % (20.0-45.0) Monocytes (%) (Auto) 10.5 % (1.0-10.0) H Eosinophils (%) (Auto) 2.2 % (0.0-3.0) Basophils (%) (Auto) 1.7 % (0.0-2.0) Prothrombin Time 10.8 SEC (9.30-11.50) Prothrombin Time INR 1.0 (0.9-1.1) PTT 26 SEC (23-33) Sodium Level 142 MMOL/L (136-145) Potassium Level 4.2 MMOL/L (3.5-5.1) Chloride Level 108 MMOL/L (98-107) H Carbon Dioxide Level 22 MMOL/L (21-32) Anion Gap 12 mmol/L (5-15) Blood Urea Nitrogen 21 mg/dL (7-18) H Creatinine 0.6 MG/DL (0.55-1.30) Estimate Glomerular Filtration Rate > 60 mL/min (>60) Glucose Level 122 MG/DL (74-106) H Calcium Level 9.0 MG/DL (8.5-10.1) Total Bilirubin 0.4 MG/DL (0.2-1.0) Aspartate Amino Transferase (AST) 15 U/L (15-37) Alanine Aminotransferase (ALT) 19 U/L (12-78) Alkaline Phosphatase 77 U/L (46-116) Total Creatine Kinase 83 U/L (26-308) Troponin I 0.000 ng/mL (0.000-0.056) Pro-B-Type Natriuretic Peptide 760 pg/mL (0-125) H Total Protein 7.1 G/DL (6.4-8.2) Albumin 3.3 G/DL (3.4-5.0) L Globulin 3.8 g/dL Albumin/Globulin Ratio 0.9 (1.0-2.7) L Urine Color Pale yellow Urine Appearance Clear Urine pH 5 (4.5-8.0) Urine Specific [place] 1.010 (1.005-1.035) Urine Protein Negative (NEGATIVE) Urine Glucose (UA) Negative (NEGATIVE) Urine Ketones Negative (NEGATIVE) Urine Blood 1+ (NEGATIVE) H Urine Nitrite Negative (NEGATIVE) Urine Bilirubin Negative (NEGATIVE) Urine Urobilinogen Normal MG/DL (0.0-1.0) Urine Leukocyte Esterase Negative (NEGATIVE) Urine RBC 2-4 /HPF (0 - 2) H Urine WBC 0 /HPF (0 - 2) Urine Squamous Epithelial Cells Few /LPF (NONE/OCC) Urine Bacteria Occasional /HPF (NONE) EKG Diagnostic Results Rate: bradycardiac Rhythm: NSR ST Segments: no acute changes Rhythm Strip Diag. Results EP Interpretation: yes Rhythm: no PVC's, no ectopy Chest X-Ray Diagnostic Results Chest X-Ray Diagnostic Results : Chest X-Ray Ordered: Yes # of Views/Limited/Complete: 1 View Indication: Other EP Interpretation: Yes Interpretation: no consolidation, no effusion, no pneumothorax Impression: No acute disease Electronically Signed by: Electronically signed by Jarett Bailey MD Last Vital Signs Date Time Temp Pulse Resp B/P (MAP) Pulse Ox O2 Delivery O2 Flow Rate FiO2 05/20/18 23:24 98.4 56 12 168/48 98 Status: improved Disposition: HOME, SELF-CARE Condition: Improved Scripts Clonidine Hcl* (CATAPRES*) 0.1 Mg Tablet 0.1 MG ORAL BID, #30 TAB 1 Refill Prov: Jarett Bailey MD 05/20/18 Referrals: NON PHYSICIAN (PCP) Jarett Bailey MD May 20, 2018 23:01
[2018-05-20] MEDS ORDERED: CATAPRES0.1 MG ORAL (23:04)
--- NOTE | 2018-05-20 23:20 | NUR ---
ED Nurse Note: Patient discharged in stable condition, given clonidine before departure and provided with discharge instructions. ID band removed, IV removed, patient verbalized understanding of discharge instructions and escorted to departure desk. patient departed to private transportation with all personal beloingings.
[2018-05-20 23:24] VITALS: BP 168/48
--- NOTE | 2018-05-22 12:42 | Cardiology Report ---
APPROVED REPORT EKG Measurement Heart [id number] Sinus bradycardia Otherwise normal ECG
== END 2018-05-20 23:24 | disposition home or self-care (01) ==
LOC: EMR 21:00
DX: I10 Essential (primary) hypertension (principal); F41.9 Anxiety disorder, unspecified; E11.9 Type 2 diabetes mellitus without complications; Z95.5 Presence of coronary angioplasty implant and graft; Z88.6 Allergy status to analgesic agent
CPT/HCPCS: 36415; 71045; 80053; 81003; 82550; 83880; 84484; 85025; 85610; 85730; 93005; 99284

== ENCOUNTER 2018-06-11 21:27 | Emergency (ER) | payer MEDICARE, MEDICAID ==
[~2018-06-11] VITALS: Ht 165.1 cm; Wt 68.0 kg
[~2018-06-11 21:27] MED LIST changes: +ATIVAN0.5 MG ORAL; +BENAZEPRIL HCL40 MG ORAL; +CATAPRES0.1 MG ORAL
[2018-06-11] MEDS ORDERED: LOSARTAN POTASS25 M1 PO (21:42)
--- NOTE | 2018-06-11 21:54 | Emergency Room Report ---
History of Present Illness General Chief Complaint: Abdominal Pain Source: Patient Present Illness [facility] This is a 68-year-old female with history of high blood pressure. She presents with chief point abdominal pain. Onset this afternoon. Initially pain was to the epigastric area. Now to the lower quadrant. Pain is sharp and crampy. Has nausea and vomiting. Did not eat dinner because of the pain. No diarrhea. No dysuria frequency. Pain is 8 out of 10. Worse with palpation. Allergies: Coded Allergies: ACETAMINOPHEN (Verified Allergy, Unknown, 01/10/18) HYDROCODONE (Verified Allergy, Unknown, 01/10/18) Patient History Past Medical History: see triage record, old chart reviewed, HTN Past Surgical History: other Pertinent Family History: none Social History: Denies: smoking Last Menstrual Period: CHICHI Now: No Immunizations: other Reviewed Nursing Documentation: PMH: Agreed; PSxH: Agreed Nursing Documentation-PMH Past Medical History: No History, Except For Hx Cardiac Problems: Yes - Stent, stenosis Hx Hypertension: Yes Hx Diabetes: Yes Hx Cancer: No Hx Gastrointestinal Problems: No Hx Neurological Problems: No Review of Systems Eye: Denies: eye pain, blurred vision ENT: Denies: ear pain, nose congestion, throat swelling Respiratory: Denies: cough, shortness of breath Cardiovascular: Denies: chest pain, palpitations Gastrointestinal: Reports: abdominal pain, nausea, vomiting; Denies: diarrhea Musculoskeletal: Denies: back pain, joint pain Skin: Denies: rash Neurological: Denies: headache, numbness Endocrine: Denies: increased thirst, increased urine Hematologic/Lymphatic: Denies: easy bruising All Other Systems: negative except mentioned in HPI Physical Exam Vital Signs Date Time Temp Pulse Resp B/P (MAP) Pulse Ox O2 Delivery O2 Flow Rate FiO2 06/11/18 21:38 97.9 66 18 197/74 94 Room Air vitals with high blood pressure Sp02 EP Interpretation: reviewed, normal General Appearance: well appearing, no apparent distress, alert Head: normocephalic, atraumatic Eyes: bilateral eye PERRL, bilateral eye EOMI ENT: hearing grossly normal, normal pharynx Neck: full range of motion, supple, no meningismus Respiratory: chest non-tender, lungs clear, normal breath sounds Cardiovascular #1: regular rate, rhythm, no murmur Gastrointestinal: no mass, no organomegaly, no bruit, non-distended, abnormal bowel sounds - increased, tenderness - Diffuse Musculoskeletal: back normal, gait/station normal, normal range of motion Psychiatric: mood/affect normal Skin: warm/dry Medical Decision Making Diagnostic Impression: Primary Impression: Abdominal pain Qualified Codes: R10.84 - Generalized abdominal pain ER Course Patient presents with abdominal pain and nausea and vomiting. Symptom resolved now. Labs unremarkable. Blood pressure improved. She did not take her blood pressure medication today. She has no right upper quadrant pain. I see no evidence of any urinary issue. No evidence of obstruction or acute abdomen. We 'll discharge home. Lab Results Impression labs unremarkable CT/MRI/US Diagnostic Results CT/MRI/US Diagnostic Results : Imaging Test Ordered: CT abdomen and pelvis Impression Read by radiologist. Contracted gallbladder with possible wall thickening. Right indirect able to fat-containing hernia. Last Vital Signs Date Time Temp Pulse Resp B/P (MAP) Pulse Ox O2 Delivery O2 Flow Rate FiO2 06/11/18 21:38 97.9 66 18 197/74 94 Room Air Status: improved Disposition: HOME, SELF-CARE Condition: Stable Scripts Ondansetron (Zofran) 4 Mg Tablet 4 MG ORAL Q6H PRN for Nausea & Vomiting, #10 TAB 0 Refills Prov: Luis French MD 06/11/18 Ibuprofen* (MOTRIN*) 600 Mg Tablet 600 MG ORAL THREE TIMES A DAY, #30 TAB 0 Refills Prov: Luis French MD 06/11/18 Patient Instructions: Abdominal Pain, Adult Additional Instructions: Follow-up with your DrKaro in 2-3 days if not better. Return if worse. Luis French MD Jun 11, 2018 21:54
[2018-06-11 22:00] VITALS: BP 173/74
[2018-06-11] MEDS ORDERED: Ketorolac 30mg Inj IV ONE (22:00)
[2018-06-11 22:46] LABS: APPEARANCE,URINE CLEAR; BILIRUBIN, URINE NEGATIVE (NEGATIVE); GLUCOSE, URINE (UA) NEGATIVE (NEGATIVE); KETONES,URINE NEGATIVE (NEGATIVE); LEUKOCYTE ESTERASE ,URINE NEGATIVE (NEGATIVE); NITRITE,URINE NEGATIVE (NEGATIVE); PH,URINE 5 (4.5-8.0); PROTEIN,URINE NEGATIVE (NEGATIVE); UROBILINOGEN,URINE NORMAL MG/DL (0.0-1.0)
[2018-06-11 22:49] LABS: COLOR,URINE YELLOW
[2018-06-11 22:51] LABS: BASOPHILS % (AUTO) 1.2 % (0.0-2.0); HEMATOCRIT 35.3 % (37.0-47.0); HEMOGLOBIN 11.8 G/DL (12.0-16.0); LYMPHOCYTES % (AUTO) 16.1 % (20.0-45.0); MEAN CORPUSCULAR VOLUME 93 FL (80-99); MONOCYTES % (AUTO) 10.1 % (1.0-10.0); NEUTROPHILS % (AUTO) 70.6 % (45.0-75.0); PLATELET COUNT 146 K/UL (150-450); RED BLOOD COUNT 3.78 M/UL (4.20-5.40); RED CELL DISTRIBUTION WIDTH 11.4 % (11.6-14.8); WHITE BLOOD COUNT 7.7 K/UL (4.8-10.8)
[2018-06-11 22:56] LABS: ANION GAP 9 mmol/L (5-15); BLOOD UREA NITROGEN 28 mg/dL (7-18); CALCIUM 8.5 MG/DL (8.5-10.1); CARBON DIOXIDE 24 MMOL/L (21-32); CHLORIDE 109 MMOL/L (98-107); CREATININE 0.7 MG/DL (0.55-1.30); POTASSIUM 3.8 MMOL/L (3.5-5.1); SODIUM 142 MMOL/L (136-145)
[2018-06-11 23:00] LABS: ALANINE AMINOTRANSFERASE 24 U/L (12-78); ALBUMIN 3.3 G/DL (3.4-5.0); ALBUMIN/GLOBULIN RATIO 0.9 (1.0-2.7); ALKALINE PHOSPHATASE 71 U/L (46-116); ASPARTATE AMINO TRANSFERASE 17 U/L (15-37); BILIRUBIN,TOTAL 0.5 MG/DL (0.2-1.0)
[2018-06-11] MEDS ORDERED: IBUPROFEN600 MG ORAL (23:25)
[2018-06-11] MEDS ORDERED: ZOFRAN4 MG ORAL (23:25)
[2018-06-11 23:45] VITALS: BP 141/59
[2018-06-12] VITALS: BP 141/59
--- NOTE | 2018-06-12 10:09 | Diagnostic Imaging Report ---
Indication: Abdominal pain Technique: Spiral acquisitions obtained through the abdomen and pelvis. No oral contrast utilized, per emergency room physician request No IV contrast utilized, per referring physician request.. Multiplanar reconstructions were generated. Total dose length product 794.43 mGycm. CTDIvol(s) 17.05 mGy. Dose reduction achieved using automated exposure control Comparison: 01/10/2018 contrast study Findings: The appendix is normal. There is fairly extensive colonic diverticulosis. No evidence of acute diverticulitis. There is a small right inguinal hernia contains only fat. Surgical clips are seen in the groins bilaterally. No small bowel distention. No free or loculated intraperitoneal gas or fluid is evident. Distal esophagus, stomach, duodenum are unremarkable. Previously demonstrated small bowel fluid has resolved. Lack of IV contrast limits assessment of the solid organs. The liver is grossly unremarkable. Previously demonstrated right lobe liver lesion is not apparent on current noninfused exam. The gallbladder is nondistended and there are no gallstones visualized. However, there is suggestion of slight edema of the gallbladder wall. This appearance is similar to the previous exam. The pancreas, spleen, adrenals, kidneys are unremarkable. Previously demonstrated low-attenuation renal lesions are not evident on current noninfused exam. Calcifications in the right renal sinus are probably vascular. No renal or ureteral calculi, hydronephrosis, hydroureter. No retroperitoneal or mesenteric mass or adenopathy. No pelvic mass or adenopathy. Uterus and adnexal structures are unremarkable. The included lung bases demonstrate posterior dependent atelectatic changes. The bones demonstrate degenerative spondylosis changes. Impression: No acute abnormality Colonic diverticulosis. No evidence of diverticulitis Suggestion of slight gallbladder wall edema. Gallbladder is nondistended and there are no gallstones, and the appearance is similar to the previous study. Suspect baseline appearance of the gallbladder, but if there is high clinical suspicion for acute cholecystitis ultrasound or hepatobiliary nuclear scan should be considered. Incidental findings as noted This agrees with the preliminary interpretation provided overnight by [facility] telerad[facility] service. The CT scanner at [facility] is accredited by the [employer] and the scans are performed using protocols designed to limit radiation exposure to as low as reasonably achievable to attain images of sufficient resolution adequate for diagnostic evaluation.
== END 2018-06-12 | disposition home or self-care (01) ==
LOC: EMR 22:30
DX: R10.84 Generalized abdominal pain (principal); R11.2 Nausea with vomiting, unspecified; I10 Essential (primary) hypertension; Z88.6 Allergy status to analgesic agent; Z95.5 Presence of coronary angioplasty implant and graft; E11.9 Type 2 diabetes mellitus without complications; K57.90 Diverticulosis of intestine, part unspecified, without perforation or abscess without bleeding
CPT/HCPCS: 36415; 74176; 80053; 81003; 83690; 85025; 96361; 96374; 96375; 99284; J0360; J1885; J2405

== ENCOUNTER 2018-07-01 00:32 | Emergency (ER) | payer MEDICARE, MEDICAID ==
[~2018-07-01] VITALS: Ht 165.1 cm; Wt 68.0 kg
[~2018-07-01 00:32] MED LIST changes: +IBUPROFEN600 MG ORAL; +LOSARTAN POTASS25 M1 PO; +ZOFRAN4 MG ORAL
--- NOTE | 2018-07-01 00:45 | NUR ---
ED Nurse Note: pt came from home c/o high BP with Left sided headache and dizziness x1 week. per pt her pmd added a new BP medication to her regimen.
[2018-07-01 00:48] VITALS: BP 179/69
[2018-07-01] MEDS ORDERED: METFORMIN HCL500 M1 ORAL (00:48)
[2018-07-01] MEDS ORDERED: ALLOPURINOL100 M1 ORAL (00:48)
[2018-07-01] MEDS ORDERED: ASPIRIN81 M3 PO (00:48)
--- NOTE | 2018-07-01 01:01 | Emergency Room Report ---
History of Present Illness General Chief Complaint: Hypertension Source: Patient Present Illness HPI This is a 68-year-old female with history of hypertension anxiety. She presents with chief complaint of high blood pressure. She said she went up tonight when she came home her blood pressure 160. She fell asleep and when she woke up she had some headache and left neck pain. She checked her blood pressure and it was systolic in the 200. She's been here a few times for the same thing. Most recently about a couple weeks ago. Labs are unremarkable. Patient denies any fever chills but no nausea no vomiting. No slurred speech. No focal deficit. No chest pain. Allergies: Coded Allergies: ACETAMINOPHEN (Verified Allergy, Unknown, 01/10/18) HYDROCODONE (Verified Allergy, Unknown, 01/10/18) Patient History Past Medical History: see triage record, old chart reviewed, HTN Past Surgical History: other Pertinent Family History: none Social History: Denies: smoking Last Menstrual Period: na Now: No Immunizations: other Reviewed Nursing Documentation: PMH: Agreed; PSxH: Agreed Nursing Documentation-PMH Past Medical History: No History, Except For Hx Cardiac Problems: Yes - Stent, stenosis Hx Hypertension: Yes Hx Diabetes: Yes Hx Cancer: No Hx Gastrointestinal Problems: No Hx Neurological Problems: No Review of Systems Eye: Denies: eye pain, blurred vision ENT: Denies: ear pain, nose congestion, throat swelling Respiratory: Denies: cough, shortness of breath Cardiovascular: Denies: chest pain, palpitations Gastrointestinal: Denies: abdominal pain, diarrhea, nausea, vomiting Musculoskeletal: Denies: back pain, joint pain Skin: Denies: rash Neurological: Reports: headache; Denies: numbness Endocrine: Denies: increased thirst, increased urine Hematologic/Lymphatic: Denies: easy bruising All Other Systems: negative except mentioned in HPI Physical Exam Vital Signs Date Time Temp Pulse Resp B/P (MAP) Pulse Ox O2 Delivery O2 Flow Rate FiO2 07/01/18 00:33 97.7 61 18 98 Room Air 07/01/18 00:48 179/69 vitals with high blood pressure Sp02 EP Interpretation: reviewed, normal General Appearance: well appearing, no apparent distress, alert Head: normocephalic, atraumatic Eyes: bilateral eye PERRL, bilateral eye EOMI ENT: hearing grossly normal, normal pharynx Neck: full range of motion, supple, no meningismus Respiratory: chest non-tender, lungs clear, normal breath sounds Cardiovascular #1: regular rate, rhythm, no murmur Gastrointestinal: normal bowel sounds, non tender, no mass, no organomegaly, no bruit, non-distended Musculoskeletal: back normal, gait/station normal, normal range of motion Psychiatric: anxious Skin: warm/dry Medical Decision Making Diagnostic Impression: Primary Impression: Hypertension Qualified Codes: I10 - Essential (primary) hypertension ER Course Patient presents with anxiety. She had blood work done recently. I see no need to repeat. No evidence of TIA or CVA. No evidence of end organ damage. We'll discharge home. I will add hydrochlorothiazide to her regimen. Rhythm Strip Diag. Results EP Interpretation: yes Rate: 60 Rhythm: NSR, no PVC's, no ectopy Last Vital Signs Date Time Temp Pulse Resp B/P (MAP) Pulse Ox O2 Delivery O2 Flow Rate FiO2 07/01/18 00:48 97.7 61 18 179/69 98 Room Air Status: improved Disposition: HOME, SELF-CARE Condition: Stable Scripts Hydrochlorothiazide* (HYDROCHLOROTHIAZIDE*) 25 Mg Tablet 25 MG ORAL DAILY, #30 TAB Prov: Luis French MD 07/01/18 Referrals: [facility] [place],REFERRING (PCP) Additional Instructions: Follow-up with your doctor in a week. Return if symptom worsen. Luis French MD July 01, 2018 01:01
[2018-07-01] MEDS ORDERED: Acetaminophen 500mg (ES) tab ORAL ONE ×2 (01:45)
[2018-07-01] MEDS ORDERED: Ketorolac 30mg Inj IV ONE (01:45)
[2018-07-01] MEDS ORDERED: HYDROCHLOROTHIA25 MG ORAL (01:45)
[2018-07-01 02:00] VITALS: BP 151/48
--- NOTE | 2018-07-01 02:00 | NUR ---
ER DISCHARGE NOTE: Patient is cleared to be discharged per ERMD, pt is aox4, on room air, with stable vital signs. pt was given dc and prescription instructions, pt was able to verbalize understanding, pt id band and iv site removed without complications. pt is able to ambulate with steady gait. pt took all belongings.
== END 2018-07-01 02:00 | disposition home or self-care (01) ==
LOC: EMR 00:57
DX: I10 Essential (primary) hypertension (principal); Z88.6 Allergy status to analgesic agent; M54.2 Cervicalgia; E11.9 Type 2 diabetes mellitus without complications
CPT/HCPCS: 96374; 96375; 96376; 99284; J0360; J1885